=== PATIENT | female | born 1965 ===

== ENCOUNTER → 2020-09-14 15:58 | Outpatient (CLI) | payer BC, SELFPAY ==
--- NOTE | ~2020-09-14 | MM_ITS ---
EXAMINATION: MM screening whit BI w gino HISTORY: Screening mammogram TECHNIQUE: Craniocaudal and mediolateral oblique 3-D tomosynthesis images were obtained and synthetic 2-D images were generated. CAD analysis was submitted and interpreted. COMPARISON: 04/26/2018, 08/13/2016, 04/27/2015, 09/23/2013 bilateral digital screening mammogram examinati ons 11/04/2011, 04/05/2011 diagnostic right mammogram and right breast ultrasound examination 03/20/2011 bilateral digital screening mammogram BREAST PARENCHYMAL COMPOSITION: There are scattered areas of fibroglandular density. FINDINGS: Bilateral upper outer quadrant mammographic asymmetries and possible new mass in the upper outer left breast. IMPRESSION: 1. Upper outer quadrant mammographic asymmetries and possible new upper outer quadrant left breast ma ss 2. Bilateral diagnostic mammography and ultrasound examination are recommended BI-RADS Category 0: Incomplete: Needs additional imaging evaluation. Reviewed, dictated and finalized at location A. IMPRESSION: 1. Upper outer quadrant mammographic asymmetries and possible new upper outer q uadrant left breast mass 2. Bilateral diagnostic mammography and ultrasound examination are recommended BI-RADS Category 0: Incomplete: Needs additional imaging evaluation.
== END ==
PROVIDERS: PCP Internal Medicine; Visit Provider Obstetrics & Gynecology
DX: Z12.31 Encounter for screening mammogram for malignant neoplasm of breast (principal); R92.8 Other abnormal and inconclusive findings on diagnostic imaging of breast
CPT/HCPCS: 77063; 77067

== ENCOUNTER → 2020-11-14 08:57 | Outpatient (CLI) | payer BC, SELFPAY ==
--- NOTE | ~2020-11-14 | MMUS_ITS ---
EXAMINATION: MM diagnostic whit BI w gino, US breast BI complete HISTORY: Follow-up breast asymmetries TECHNIQUE: Additional 3-D tomosynthesis images of the breasts were performed and synthetic 2-D images were generated. CAD analysis was submitted and interpreted. High resolution bilateral complete breas t ultrasound was performed. COMPARISON: Comparison to multiple prior studies sequentially, with oldest reviewed study dated 09/23. BREAST PARENCHYMAL COMPOSITION: Breast composed of scattered areas of fibroglandular density. FINDINGS: MAMMOGRAPHIC FINDINGS: There are scattered breast nodules predominantly in the lateral aspect of both breasts posteriorly. T here are scattered benign-appearing calcifications. ULTRASOUND: Right breast ultrasound: At 9:00, 6 cm from the nipple, there is a 5 mm cyst. At 10:00, 7 cm from the nipple, there is a 3 mm cyst. At 10:00, 6 cm from the nipple, there is an 8 mm cyst. At 11:00 near t he areola there is a 3 mm cyst. Left breast ultrasound: At 12:00, 4 cm from the nipple, there is a 4 mm complicated cyst. At 2:00, 7 cm from the nipple, there is a 5 mm cyst. No suspicious masses are identified to suggest malignancy. IMPRESSION: 1. Multiple bilateral breast cysts correspond to nodule seen on mammography. No evidence for malignan cy 2. Routine yearly screening mammogram and regular clinical breast examination are recommended. BI-RADS Category 2: Benign finding(s). Reviewed, dictated and finalized at location A. IMPRESSION: 1. Multiple bilateral breast cysts correspond to nodule seen on mammography. No evidence for malignancy 2. Routine yearly screening mammogram and regular clinical breast examination a re recommended. BI-RADS Category 2: Benign finding(s).
== END ==
PROVIDERS: PCP Internal Medicine; Visit Provider Obstetrics & Gynecology
DX: N63.0 Unspecified lump in unspecified breast (principal); R92.2 Inconclusive mammogram
CPT/HCPCS: 76641; 77062; 77066; G0279

== ENCOUNTER → 2021-07-30 11:10 | Outpatient (CLI) | payer BC, SELFPAY ==
--- NOTE | ~2021-07-30 | DEXA_ITS ---
Bone Density Report Name: CROW TAY Age: 56 Sex: Female Ethnicity: White Date of : 1965 Indication: osteopenia; monitoring treatment; postmenopausal Referring Provider: Jessica Fritz Study: Bone densitometry was performed. Exam Date: July 30, 2021 Accession number: [id number] Bone Density: Region BMD T-score Z-score Classification AP Spine (L1-L4) 0.835 -1.9 -0.7 Osteopenia Femoral Neck (Left) 0.613 -2.1 -0.9 Osteopenia Total Hip (Left) 0.772 -1.4 -0.6 Osteopenia Femoral Neck (Right) 0.634 -1.9 -0.7 Osteopenia Total Hip (Right) 0.811 -1.1 -0.2 Osteopenia Total Hip Mean 0.792 -1.3 -0.4 Osteopenia World Health Organization criteria for BMD impression classify patients as: Normal (T-score at or above -1.0), Osteopenia (T-score between -1.0 and -2.5), or Osteoporosis (T-score at or below -2.5). 10-year Fracture Risk: FRAX not reported because: Treated for osteoporosis Previous Exams: Region Exam Age BMD T-score BMD Change BMD Change Date g/cm2 vs Baseline vs Previous AP Spine(L1-L4) 07/30/2021 56 0.835 -1.9 -0.001 -0.004 04/09/2018 52 0.839 -1.9 0.004 0.062* 09/23/2013 48 0.777 -2.5 -0.058* -0.058* 03/20/2011 45 0.835 -1.9 Total Hip(Left) 07/30/2021 56 0.772 -1.4 0.044* 0.021 04/09/2018 52 0.751 -1.6 0.023 0.030* 09/23/2013 48 0.722 -1.8 -0.007 -0.007 03/20/2011 45 0.729 -1.7 Total Hip(Right) 07/30/2021 56 0.811 -1.1 0.067* 0.041* 04/09/2018 52 0.770 -1.4 0.026 0.021 09/23/2013 48 0.749 -1.6 0.004 0.004 03/20/2011 45 0.745 -1.6 *Denotes significance at 95% confidence level, LSC for AP Spine = 0.022 g/cm2, LSC for Total Hip = 0.027 g/cm2 Clinical Information Provided by Patient: Is being treated for osteoporosis Has used the following medications: Fosamax (i.e. alendronate), Vitamin D, Calcium Patient maximum height was 65 Menopause Age: 42 No regular weight bearing exercise Drinks caffeinated beverages Onset of menses at age 11 Number of children 2 Impression: The patient has low bone mass, based on the Left Femoral Neck T-score. No significant bone loss was observed. Discussion: PATIENT UNDER TREATMENT WITH NO SIGNIFICANT BMD LOSS SINCE LAST EXAM. In an untreated patient, BMD typically declines with age. Jerry allison
== END ==
PROVIDERS: PCP Student in an Organized Health Care Education/Training Program; Visit Provider Student in an Organized Health Care Education/Training Program
DX: Z78.0 Asymptomatic menopausal state (principal); M85.88 Other specified disorders of bone density and structure, other site; M85.852 Other specified disorders of bone density and structure, left thigh; M85.851 Other specified disorders of bone density and structure, right thigh
CPT/HCPCS: 77080

== ENCOUNTER → 2023-02-18 12:41 | Outpatient (CLI) | payer BC, SELFPAY ==
--- NOTE | ~2023-02-18 | MM_ITS ---
EXAMINATION: MM screening [facility] BI w gino HISTORY: Screening mammogram TECHNIQUE: Craniocaudal and mediolateral oblique 3-D tomosynthesis images were obtained and synthetic 2-D images were generated. CAD analysis was submitted and interpreted. COMPARISON: 11/14/2020, 09/14/2020, 04/09/2018, 08/13/2016 BREAST PARENCHYMAL COMPOSITION: There are scattered areas of fibroglandular density. FINDINGS: No suspicious mass, calcification, or architectural distortion are identified in either lisa ast to suggest malignancy. There has been no suspicious interval change. IMPRESSION: 1. No mammographic evidence of malignancy. 2. Recommend routine screening mammography in one year. BI-RADS Category 1: Negative Reviewed, dictated and finalized at location A. [employer]
== END ==
PROVIDERS: PCP Internal Medicine; Visit Provider Registered Nurse
DX: Z12.31 Encounter for screening mammogram for malignant neoplasm of breast (principal)
CPT/HCPCS: 77063; 77067

== ENCOUNTER 2024-01-14 13:17 | Outpatient (CLI) | payer BC, SELFPAY ==
--- NOTE | ~2024-01-14 | DEXA_ITS ---
Bone Density Report Name: CROW TAY Age: 58 Sex: Female Ethnicity: White Date of : 1965 Indication: postmenopausal; screening for osteoporosis; Referring Provider: MARIVEL NAVA Study: Bone densitometry was performed. Exam Date: January 14, 2024 Accession number: [id number] Bone Density: Region BMD T-score Z-score Classification AP Spine(L1-L4) 0.880 -1.5 -0.1 Osteopenia Femoral Neck (Left) 0.599 -2.3 -1.0 Osteopenia Total Hip (Left) 0.806 -1.1 -0.1 Osteopenia Femoral Neck (Right) 0.617 -2.1 -0.8 Osteopenia Total Hip (Right) 0.793 -1.2 -0.2 Osteopenia Total Hip Mean 0.800 -1.2 -0.2 Osteopenia World Health Organization criteria for BMD impression classify patients as: Normal (T-score at or above -1.0), Osteopenia (T-score between -1.0 and -2.5), or Osteoporosis (T-score at or below -2.5). 10-year Fracture Risk(1): Major Osteoporotic Fracture 10% Hip Fracture 1.5% Reported Risk Factors: [place] (), Neck BMD=0.599, BMI=29.7 (1) FRAX(R) Version 3.08. Fracture probability calculated for an untreated patient. Fracture probability may be lower if the patient has received treatment. Clinical Information Provided by Patient: Has used the following medications: Vitamin D, Calcium, a weekly pill ?name Patient maximum height was 64.75 Drinks caffeinated beverages Onset of menses at age 11 Number of children 2 Impression: The patient has low bone mass, based on the Left Femoral Neck T-score. The patient has an estimated ten-year risk of hip fracture of 1.5% and an estimated ten-year risk of major fracture of 10%, based on the WHO FRAX algorithm. Discussion: BONE DENSITY IS LOW AT ONE OR MORE SKELETAL SITES. This patient's lowest T-score is low at one or more skeletal sites. It meets the World Health Organization's (WHO) criteria for ?low bone mass? (T-score between -1.0 and -2.5). The patient's 10-year risk of fracture as calculated by FRAX is less than the threshold where pharmacological therapy is recommended by the National Osteoporosis Foundation (NOF). However, all treatment decisions require clinical judgment and consideration of individual patient factors, including patient preferences, comorbidities, previous drug use, risk factors not captured in the FRAX model (e.g., frailty, falls, vitamin D deficiency, increased bone turnover, interval significant decline in bone density) and possible under or overestimation of fracture risk by FRAX. The patient should follow a healthful lifestyle (good nutrition with adequate calcium and vitamin D, and appropriate weight-bearing exercise). Follow-Up: Consider repeating this study in 2 to 3 years to reassess this patient's status, or sooner if there is some new clinical indication. Reported by: KANE on 01/14/2024 1:4
== END 2024-01-14 13:18 | disposition home or self-care (01) ==
LOC: ANHIMG 13:19
PROVIDERS: PCP Internal Medicine; Visit Provider Nurse Practitioner Family
DX: M85.89 Other specified disorders of bone density and structure, multiple sites (principal)
CPT/HCPCS: 77080

== ENCOUNTER 2024-07-12 12:19 | Outpatient (CLI) | payer BC, SELFPAY ==
--- NOTE | ~2024-07-12 | MM_ITS ---
EXAMINATION: MM screening whit BI w gino HISTORY: Screening TECHNIQUE: Craniocaudal and mediolateral oblique 3-D tomosynthesis images were obtained and synthetic 2-D images were generated. CAD analysis was submitted and interpreted. COMPARISON: Comparison to multiple prior studies sequentially, with oldest reviewed study dated 04/27. BREAST PARENCHYMAL COMPOSITION: Not dense: There are scattered areas of fibroglandular density. FINDINGS: There is no evidence of suspicious mass, calcification, or architectural distortion to sugg est malignancy in either breast. There has been no suspicious interval change. IMPRESSION: 1. No mammographic evidence of malignancy. 2. Recommend routine screening mammography in one year. BI-RADS Category 1: Negative Reviewed, dictated and finalized at location A.
== END 2024-07-12 12:20 | disposition home or self-care (01) ==
PROVIDERS: PCP Internal Medicine; Visit Provider Nurse Practitioner Family
DX: Z12.31 Encounter for screening mammogram for malignant neoplasm of breast (principal)
CPT/HCPCS: 77063; 77067